=== PATIENT | male | born 1990 | race Two or more races ===

== ENCOUNTER 2024-04-06 11:10 | Emergency (ER) | payer OTHER ==
[~2024-04-06] VITALS: Ht 175.3 cm; Wt 89.8 kg
[~2024-04-06 11:10] MED LIST: PROTONIX40 MG PO; ZANTAC300 MG PO; ZOFRAN4 MG PO
[2024-04-06 13:18] LABS: HEMATOCRIT 41.3 % (39.0-48.0); HEMOGLOBIN 13.2 g/dL (13-16.00); MEAN CELL VOLUME 77.4 fL (80.0-100.00); MEAN CORPUSCULAR HEMOGLOBIN 24.6 pg (27.00-32.0); MEAN CORPUSCULAR HGB CONC 31.9 g/dl (32.0-36.0); PLATELET COUNT 252 K/uL (150-450); RED BLOOD COUNT 5.34 M/uL (4.00-6.00); RED CELL DISTRIBUTION WIDTH 14.1 % (11.5-14.5)
[2024-04-06 13:39] LABS: ALBUMIN 4.1 gm/dL (3.4-5.0); BILIRUBIN TOTAL 0.28 mg/dL (0.3-1.2); CALCIUM 9.6 mg/dL (8.5-10.1); CREATININE SERUM 1.17 mg/dL (0.70-1.30); GFR 71.36; GLOBULINA 3.7 G/DL (2.4-3.5); POTASSIUM 3.91 mEq/L (3.5-5.1); TOTAL PROTEIN 7.8 gm/dL (6.4-8.2)
[2024-04-06 15:25] LABS: PH,URINE 7.5 (5.0-8.0); URINE APPEARANCE Clear; URINE BILIRRUBIN Negative (NEGATIVE); URINE BLOOD Negative; URINE COLOR Yellow; URINE GLUCOSE Negative (NEGATIVE); URINE KETONE Trace (NEGATIVE); URINE LEUKOCYTE Negative; URINE NITRATE Negative; URINE PROTEIN Negative (NEGATIVE); URINE UROBILINOGEN 0.2 E.U./dl
[2024-04-06 15:28] LABS: URINE RBC 45.7 uL (0.0-20.8)
[2024-04-06 15:44] LABS: URINE BACTERIA 1.2 uL (0.0-1933); URINE WBC 0.6 uL (0.0-23.2)
[2024-04-06] MEDS ORDERED: KETO10TA2 PO (17:44)
[2024-04-06] MEDS ORDERED: BACTRIM DS TAB1 EACH PO (17:44)
[2024-04-06] MEDS ORDERED: PEPCID AC20 MG PO (17:44)
[2024-04-06] MEDS ORDERED: TAMS0.4C PO (17:44)
== END 2024-04-06 20:09 | disposition home or self-care (01) ==
LOC: ER 11:12
PROVIDERS: General Practice
DX: D69.6 Thrombocytopenia, unspecified (principal); R53.81 Other malaise; Z91.013 Allergy to seafood

== ENCOUNTER 2024-04-27 20:32 | Emergency (ER) | payer OTHER ==
[~2024-04-27] VITALS: Ht 172.7 cm; Wt 90.7 kg
[~2024-04-27 20:32] MED LIST changes: +BACTRIM DS TAB1 EACH PO; +KETO10TA2 PO; +PEPCID AC20 MG PO; +TAMS0.4C PO
[2024-04-27 20:41] VITALS: BP 140/90; O2SAT 98
[2024-04-28] MEDS ORDERED: KETOROLAC TROMETHAMINE 60 MG VIAL IM STA (01:11)
[2024-04-28 01:41] LABS: HEMOGLOBIN 12.1 g/dL (13-16.00); MEAN CELL VOLUME 77.5 fL (80.0-100.00); MEAN CORPUSCULAR HEMOGLOBIN 25.3 pg (27.00-32.0); MEAN CORPUSCULAR HGB CONC 32.6 g/dl (32.0-36.0); PLATELET COUNT 241 K/uL (150-450); RED BLOOD COUNT 4.78 M/uL (4.00-6.00)
[2024-04-28 01:53] LABS: PH,URINE 5.5 (5.0-8.0); URINE APPEARANCE Clear; URINE BILIRRUBIN Negative (NEGATIVE); URINE BLOOD Small; URINE COLOR Yellow; URINE GLUCOSE Negative (NEGATIVE); URINE KETONE Negative (NEGATIVE); URINE LEUKOCYTE Negative; URINE NITRATE Negative; URINE PROTEIN Negative (NEGATIVE); URINE UROBILINOGEN 0.2 E.U./dl
[2024-04-28 01:54] LABS: URINE BACTERIA 50.3 uL (0.0-1933); URINE RBC 31.3 uL (0.0-20.8)
[2024-04-28 02:45] LABS: URINE EPITHELIAL CELLS 0.3 uL (0.0-38.8); URINE WBC 0.7 uL (0.0-23.2)
== END 2024-04-28 03:05 | disposition home or self-care (01) ==
LOC: ER 20:34
DX: M62.830 Muscle spasm of back (principal); Z91.013 Allergy to seafood